=== PATIENT | female | born 1995 | race African-American/Black ===

== ENCOUNTER 2023-12-02 22:36 | Emergency (ER) | payer OTHER ==
[2023-12-02 22:42] VITALS: PULSE 88; RESP 18; BMI 24.4
[2023-12-03 00:21] LABS: URINE APPEARANCE CLEAR; URINE BILIRUBIN NEGATIVE (NEGATIVE); URINE COLOR YELLOW; URINE GLUCOSE (UA) NEGATIVE (NEGATIVE); URINE KETONE NEGATIVE (NEGATIVE); URINE LEUK ESTERASE NEGATIVE (NEGATIVE); URINE NITRITE NEGATIVE (NEGATIVE); URINE PROTEIN NEGATIVE (NEGATIVE); URINE UROBILINOGEN 0.2 mg/dL (0.2-1.0)
[2023-12-03 00:38] LABS: BASO % 1.2 % (0-2.0); EOS % 0.6 % (0-4.5); HEMATOCRIT 34.4 % (32.4-45.2); LYMPH % 28.7 % (8-40); MCH 25.9 pg (25.7-33.7); MCHC 31.9 g/dl (32.0-36.0); MEAN CELL VOLUME 81.4 fl (80-96); MEAN PLT VOLUME 8.1 fl (7.5-11.1); MONO % 8.3 % (3.8-10.2); NEUT % 61.2 % (42.8-82.8); PLATELET COUNT 315 10^3/uL (134-434); RBC 4.23 M/mm3 (3.60-5.2); RDW 13.8 % (11.6-15.6); WHITE BLOOD COUNT 7.9 K/mm3 (4.0-10.0)
[2023-12-03 00:56] LABS: POTASSIUM 4.1 mmol/L (3.5-5.1)
[2023-12-03 00:58] LABS: CALCIUM 9.1 mg/dL (8.5-10.1)
[2023-12-03 00:59] LABS: BLOOD UREA NITROGEN 10.7 mg/dL (7-18)
[2023-12-03 01:02] LABS: CREATININE 0.6 mg/dL (0.55-1.3)
[2023-12-03 01:03] LABS: BILIRUBIN,TOTAL 0.2 mg/dL (0.2-1); TOT PROT 7.9 g/dl (6.4-8.2)
[2023-12-03] MEDS ORDERED: ACETAMINOPHEN INJECTION 100 ML IVPB ONE (01:55)
[2023-12-03] MEDS ORDERED: ONDANSETRON 4 MG/2 ML VIAL ONE (01:55)
[2023-12-03] MEDS ORDERED: FAMOTIDINE 20 MG/50 ML IVPB 20 MG/50 ML MG IVPB ONE (01:56)
[2023-12-03] MEDS: ONDANSETRON 4 MG/2 ML VIAL IVPUSH ONE (02:02)
[2023-12-03] MEDS: FAMOTIDINE 20 MG/50 ML IVPB 20 MG/50 ML MG IVPB ONE (02:02)
[2023-12-03] MEDS: SODIUM CHLORIDE 1,000 ML IV STA (02:02)
[2023-12-03] MEDS: ACETAMINOPHEN 1000 MG/100 ML BAG IVPB ONE (02:02)
[2023-12-03 04:11] VITALS: BP 122/76; TEMP 98
== END 2023-12-03 04:12 | disposition home or self-care (01) ==
LOC: JER 22:36
PROC: 3E033GC Introduction of Other Therapeutic Substance into Peripheral Vein, Percutaneous Approach (ICD-10-PCS; principal; 2023-12-03)
PROC: 3E030GC Introduction of Other Therapeutic Substance into Peripheral Vein, Open Approach (ICD-10-PCS; 2023-12-03)
PROC: 3E030GC Introduction of Other Therapeutic Substance into Peripheral Vein, Open Approach (ICD-10-PCS; 2023-12-03)
PROC: 3E0337Z Introduction of Electrolytic and Water Balance Substance into Peripheral Vein, Percutaneous Approach (ICD-10-PCS; 2023-12-03)
DX: O26.891 Other specified pregnancy related conditions, first trimester (principal); R10.13 Epigastric pain; R11.0 Nausea; Z3A.01 Less than 8 weeks gestation of pregnancy
CPT/HCPCS: 36415; 76817-TC; 80053; 81003; 84702; 85025; 86850; 86900; 86901; 87086; 96361; 96365; 96375; 99284-25; J0131

== ENCOUNTER 2024-02-22 10:30 | Emergency (ER) | payer OTHER ==
[2024-02-22 10:39] VITALS: BP 116/61; PULSE 90; RESP 18; TEMP 98.9; BMI 26.9
[2024-02-22] MEDS ORDERED: LIDOCAINE 4% PATCH TP ONE (11:41)
[2024-02-22] MEDS: LIDOCAINE 4% PATCH TP ONE (11:45)
[2024-02-22] MEDS ORDERED: LIDOCAINE PATCH REMOVAL MC SCH (22:00)
== END 2024-02-22 12:37 | disposition home or self-care (01) ==
LOC: JERFT 10:30
DX: O99.891 Other specified diseases and conditions complicating pregnancy (principal); M54.6 Pain in thoracic spine; Z3A.17 17 weeks gestation of pregnancy
CPT/HCPCS: 71046-TC-FY; 99283-25

== ENCOUNTER 2024-07-22 06:20 | Inpatient (IN) | payer OTHER ==
[2024-07-22] MEDS: DEXTROSE 5%-LACTATED RINGERS 1,000 ML IV SCH (19:30)
[2024-07-22] MEDS ORDERED: BUTORPHANOL TARTRATE 2 MG/ML VIAL ONE (19:48)
[2024-07-22] MEDS ORDERED: PROMETHAZINE HCL 25 MG/1 ML VIAL ONE (19:49)
[2024-07-22] MEDS: BUTORPHANOL TARTRATE 1 MG/ML VIAL IVPUSH ONE (19:50)
[2024-07-22] MEDS: PROMETHAZINE HCL 25 MG/1 ML VIAL IVPB ONE (19:50)
[2024-07-22 19:53] LABS: BASO % 0.6 % (0-2.0); EOS % 0.5 % (0-4.5); HEMATOCRIT 41.1 % (32.4-45.2); HEMOGLOBIN 13.8 GM/dL (10.7-15.3); MCH 29.4 pg (25.7-33.7); MCHC 33.5 g/dl (32.0-36.0); MEAN CELL VOLUME 87.8 fl (80-96); MEAN PLT VOLUME 8.6 fl (7.5-11.1); NEUT % 69.9 % (42.8-82.8); PLATELET COUNT 239 10^3/uL (134-434); RBC 4.68 M/mm3 (3.60-5.2); RDW 13.4 % (11.6-15.6); WHITE BLOOD COUNT 10.3 K/mm3 (4.0-10.0)
[2024-07-22 20:00] LABS: INR 0.89 (0.83-1.09); PROTHROMBIN TIME (PATIENT) 10.3 SEC (9.7-13.0)
[2024-07-22] MEDS ORDERED: OXYTOCIN 20 UNITS in 0.9% NS 20 UNIT/1,000 ML INFUS.BAG IV ONE (20:21)
[2024-07-22 20:30] LABS: CALCIUM 9.5 mg/dL (8.5-10.1)
[2024-07-22 20:32] LABS: BLOOD UREA NITROGEN 6.7 mg/dL (7-18)
[2024-07-22 20:34] LABS: CREATININE 0.6 mg/dL (0.55-1.3)
[2024-07-22 20:46] VITALS: BMI 29.2
[2024-07-22] MEDS ORDERED: OXYTOCIN 30 UNITS in 0.9% NS 30 UNIT/500 ML INFUS.BAG IVPB ONE (21:29)
[2024-07-22] MEDS: OXYTOCIN 20 UNITS in 0.9% NS 20 UNIT/1,000 ML INFUS.BAG IV SCH (22:24)
[2024-07-22] MEDS ORDERED: ACETAMINOPHEN 325 MG TABLET (FP) ONE (22:31)
[2024-07-22] MEDS ORDERED: LIDOCAINE HCL 1% PRESERVATIVE FREE - 30ML VIAL ONE (22:35)
[2024-07-22] MEDS: ACETAMINOPHEN 325 MG TABLET (FP) PO PRN (22:35)
[2024-07-22] MEDS ORDERED: IBUPROFEN 600 MG TABLET (FP) PO ONE (22:42)
[2024-07-22] MEDS: IBUPROFEN 600 MG TABLET (FP) PO PRN (22:45)
[2024-07-22 22:52] LABS: CORD HCO3 24.9 mmHg (20-29); CORD PCO2 50.2 mmHg (30-78); CORD pH 7.314 (7.14-7.44)
[2024-07-22 22:54] LABS: CORD BASE EXCESS -6.2 mmol/L (0-2); CORD HCO3 24.7 mmHg (20-29); CORD PCO2 72.3 mmHg (30-78); CORD pH 7.151 (7.14-7.44)
[2024-07-22] MEDS ORDERED: METHYLERGONOVINE MALEATE 0.2 MG/1 ML AMP IM PRN (23:26)
[2024-07-22] MEDS ORDERED: WITCH HAZEL 50% (TUCKS) 40 PAD/JAR PAD TP PRN (23:26)
[2024-07-23 08:18] LABS: BASO % 0.6 % (0-2.0); HEMATOCRIT 34.7 % (32.4-45.2); HEMOGLOBIN 11.3 GM/dL (10.7-15.3); LYMPH % 15.6 % (8-40); MCH 29.1 pg (25.7-33.7); MCHC 32.5 g/dl (32.0-36.0); MEAN CELL VOLUME 89.6 fl (80-96); MEAN PLT VOLUME 7.9 fl (7.5-11.1); MONO % 5.8 % (3.8-10.2); PLATELET COUNT 222 10^3/uL (134-434); RBC 3.87 M/mm3 (3.60-5.2); RDW 13.4 % (11.6-15.6); WHITE BLOOD COUNT 16.4 K/mm3 (4.0-10.0)
[2024-07-23] MEDS: FLU VACCINE (FLULAVAL) PF 45 MCG/0.5 ML SYRINGE 2024-2025 IM ONE (09:37)
[2024-07-23] MEDS: BENZOCAINE 28 GM HEMORRHOIDAL OINTMENT TP PRN (13:41)
[2024-07-23] MEDS: BENZOCAINE 20% 57 GM BOTTLE TP PRN (13:41)
[2024-07-23] MEDS: oxyCODONE HCL 5 MG TABLET PO PRN (20:59)
[2024-07-23] MEDS: SENNOSIDES/DOCUSATE COMBO (SENNA PLUS) TABLET (UD) PO PRN (21:02)
[2024-07-23] MEDS: BISACODYL 10 MG SUPP.RECT RC PRN (23:04)
[2024-07-24 09:25] VITALS: BP 102/49; PULSE 91; RESP 18; TEMP 98
== END 2024-07-24 16:05 | disposition home or self-care (01) | DRG 560 ==
LOC: JDEL 06:20 → UNDOADMIN 07:20 → JLDR 07:20 → J3W 07-23 01:44
PROVIDERS: ADMIT Obstetrics & Gynecology; ATTEND Obstetrics & Gynecology
PROC: 0W8NXZZ Division of Female Perineum, External Approach (ICD-10-PCS; principal; 2024-07-22)
PROC: 10E0XZZ Delivery of Products of Conception, External Approach (ICD-10-PCS; 2024-07-22)
DX: O48.0 Post-term pregnancy (principal); Z3A.40 40 weeks gestation of pregnancy; Z37.0 Single live birth
CPT/HCPCS: 36415; 36600; 59409; 80048; 82803; 85025; 85610; 85730; 86780; 86850; 86870; 86880; 86900; 86901; 86902; 90656; G0008